=== PATIENT | female | born 1960 | race Caucasian/White ===

== ENCOUNTER 2017-07-14 16:59 | Emergency (ER) | payer BC ==
[~2017-07-14] VITALS: Ht 162.6 cm; Wt 86.2 kg
[~2017-07-14 16:59] MED LIST: CIPR500 PO; ERGO50000 PO; K-Dur20 MEQ PO; LACT10SY PO; MELO7.5 PO; NITR100CA PO; [UNRECOGNIZED DRUG - OTHER]
[2017-07-14] MEDS ORDERED: Omeprazole20 M1 PO (17:25)
[2017-07-14] MEDS ORDERED: DULO30 PO (17:25)
[2017-07-14] MEDS ORDERED: ABAT250V (17:27)
[2017-07-14] MEDS ORDERED: CELE100 PO (17:27)
[2017-07-14] MEDS ORDERED: Norco 5-325 Ta1 EACH PO (18:05)
== END 2017-07-14 18:20 | disposition home or self-care (01) ==
LOC: ER 16:59
DX: S52.531A Colles' fracture of right radius, initial encounter for closed fracture (principal); E11.9 Type 2 diabetes mellitus without complications; D64.9 Anemia, unspecified; Z79.899 Other long term (current) drug therapy; W19.XXXA Unspecified fall, initial encounter; Y92.096 Garden or yard of other non-institutional residence as the place of occurrence of the external cause
CPT/HCPCS: 25605; 36415; 73100; 99152; 99284; J7030

== ENCOUNTER 2017-07-17 08:04 | Day surgery (SDC) | payer BC ==
[~2017-07-17] VITALS: Ht 167.6 cm; Wt 86.2 kg
[~2017-07-17 08:04] MED LIST changes: +ABAT250V; +CELE100 PO; +DULO30 PO; +Norco 5-325 Ta1 EACH PO; +Omeprazole20 M1 PO
== END 2017-07-17 22:38 | disposition home or self-care (01) ==
LOC: ORSCMMR 08:04 → ORD 12:00 → ORSCMMR 12:00
PROVIDERS: Orthopaedic Surgery
PROC: 0PSJ04Z Reposition Left Radius with Internal Fixation Device, Open Approach (ICD-10-PCS; principal; 2017-07-17 09:35)
DX: S52.552A Other extraarticular fracture of lower end of left radius, initial encounter for closed fracture (principal); K21.9 Gastro-esophageal reflux disease without esophagitis; Z79.899 Other long term (current) drug therapy
CPT/HCPCS: C1713; J0171; J0690; J1100; J1885; J2250; J2405; J3010; J7120

== ENCOUNTER 2020-02-28 11:34 | Inpatient (IN) | payer BC ==
[~2020-02-28] VITALS: Ht 162.6 cm; Wt 81.7 kg
[~2020-02-28 11:34] MED LIST changes: -CELE100 PO; +CELE200 PO
[2020-02-28 12:08] LABS: BASOPHILS PERCENT AUTO 0 % (0-2); Hemoglobin 11.7 g/dL (11.5-16.0); LYMPHOCYTES ABSOLUTE AUTO 0.17 K/mm3 (0.84-5.20); LYMPHOCYTES PERCENT AUTO 9 % (21-46); MONOCYTES ABSOLUTE AUTO 0.05 K/mm3 (0.16-1.47); MONOCYTES PERCENT AUTO 3 % (4-13); Mean Corpuscular HGB 34.6 pg (26.0-34.0); Mean Corpuscular HGB Conc 33.4 g/dL (31.5-36.5); Mean Corpuscular Volume 104 fL (80-100); Mean Platelet Volume 10.3 fL (9.1-12.4); Platelet Count 222 K/mm3 (150-400); RDW Coefficient Variation 12.9 % (11.7-14.2); RDW Standard Deviation 48.8 fL (35.1-46.3); Red Blood Cell Count 3.38 M/mm3 (3.80-5.20); White Blood Cell Count 1.84 K/mm3 (4.00-11.30)
[2020-02-28 12:15] LABS: EOSINOPHILS PERCENT AUTO 0 % (0-6); IMMATURE GRAN PERCENT AUTO 0 % (0-1); NEUTROPHILS ABSOLUTE AUTO 1.62 K/mm3 (1.96-9.15); NEUTROPHILS PERCENT AUTO 88 % (41-73)
[2020-02-28 12:32] LABS: Alanine Aminotransfer (ALT/SGP 36 U/L (12-78); Albumin, Blood 1.4 g/dL (3.4-5.0); Albumin/Globulin Ratio 0.6 (0.8-1.8); Alk Phos 105 U/L (50-136); Anion Gap 17 mmol/L (6-16); Bilirubin, Total 2.3 mg/dL (0.1-1.0); Blood Urea Nitrogen 9 mg/dL (8-24); Bun/Creatinine Ratio 9.9 (12.0-20.0); CO2, Blood 17 mmol/L (21-32); Calcium, Blood 7.5 mg/dL (8.5-10.1); Chloride, Blood 100 mmol/L (98-108); Creatinine, Blood 0.91 mg/dL (0.40-1.00); Globulin, Blood 2.5 g/dL (2.2-4.0); Glomerular Filtration Rate >60 (60-); Glucose, Blood 70 mg/dL (70-99); Potassium, Blood 3.3 mmol/L (3.5-5.5); Sodium, Blood 134 mmol/L (136-145); Total Protein, Blood 3.9 g/dL (6.4-8.2); Troponin I <0.015 ng/mL (0.000-0.040)
[2020-02-28 12:57] LABS: Aspartate Aminotrans (AST/SGOT 89 U/L (12-37)
[2020-02-28 13:00] LABS: Influenza A, PCR Negative (NEGATIVE); Influenza B, PCR Negative (NEGATIVE); Resp Syncytial Virus, PCR Negative (NEGATIVE); SARS-Cov-2 (COVID-19) PCR, MMC Negative (NEGATIVE)
[2020-02-28 17:24] LABS: Base Excess Venous -13.5 mmol/L; Bicarbonate Venous 14.8 mmol/L (24.0-30.0); PCO2 Venous 27.8 mmHg (38-42); PO2 Venous 79.4 mmHg (38-42)
[2020-02-28 17:25] LABS: pH Blood Venous 7.28 (7.34-7.37)
[2020-02-28 17:31] LABS: Source, Urine Catheter
[2020-02-28 17:36] LABS: Appearance, Urine Cloudy (Clear); Blood, Urine 2+ (Neg); Color, Urine Amber (P-Yellow); Glucose Qualitative, Urine Neg (Neg); Ketones, Urine 1+ (Neg); Leukocyte Esterase, Urine 3+ (Neg); Nitrite, Urine Pos (Neg); Protein, Urine 3+ (Neg); Urobilinogen, Urine 3+ (Normal)
[2020-02-28 17:42] LABS: Bilirubin, Urine 2+ (Neg)
[2020-02-28 17:46] LABS: Bacteria Few /hpf; Squamous Epithelial Cells Mod /hpf (Few)
[2020-02-28 17:47] LABS: Mucus Light (0-Heavy)
[2020-02-28 17:49] LABS: Transitional Epithelial Cells Few /hpf (0-Rare)
[2020-02-28 17:49] LABS: International Normalized Ratio 2.16; Prothrombin Time Results 22.1 Sec (9.7-11.5)
[2020-02-28 18:31] LABS: Hematocrit 23.3 % (33.0-51.0); Hemoglobin 7.8 g/dL (11.5-16.0); Mean Corpuscular HGB 34.4 pg (26.0-34.0); Mean Corpuscular HGB Conc 33.5 g/dL (31.5-36.5); Mean Corpuscular Volume 103 fL (80-100); Mean Platelet Volume 11.8 fL (9.1-12.4); NRBC ABSOLUTE 0.03 K/mm3 (0.00-0.02); NRBC Auto 3.8 /100 WBC (0.0-0.2); Platelet Count 116 K/mm3 (150-400); RDW Coefficient Variation 13.1 % (11.7-14.2); RDW Standard Deviation 48.2 fL (35.1-46.3); Red Blood Cell Count 2.27 M/mm3 (3.80-5.20)
[2020-02-28 18:33] LABS: White Blood Cell Count 0.78 K/mm3 (4.00-11.30)
[2020-02-28 18:52] LABS: Magnesium, Blood 1.2 mg/dL (1.6-2.4)
[2020-02-28 19:12] LABS: Alanine Aminotransfer (ALT/SGP 23 U/L (12-78); Albumin, Blood 0.7 g/dL (3.4-5.0); Albumin/Globulin Ratio 0.4 (0.8-1.8); Alk Phos 53 U/L (50-136); Anion Gap 22 mmol/L (6-16); Aspartate Aminotrans (AST/SGOT 75 U/L (12-37); Blood Urea Nitrogen 8 mg/dL (8-24); Bun/Creatinine Ratio 8.2 (12.0-20.0); CO2, Blood 12 mmol/L (21-32); Calcium, Blood 5.6 mg/dL (8.5-10.1); Chloride, Blood 97 mmol/L (98-108); Creatinine, Blood 0.98 mg/dL (0.40-1.00); Globulin, Blood 1.8 g/dL (2.2-4.0); Glomerular Filtration Rate >60 (60-); Glucose, Blood 418 mg/dL (70-99); Phosphorus, Blood 3.5 mg/dL (2.5-4.9); Potassium, Blood 2.5 mmol/L (3.5-5.5); Sodium, Blood 131 mmol/L (136-145); Total Protein, Blood 2.5 g/dL (6.4-8.2)
[2020-02-28 19:16] LABS: BAND PERCENT MAN 40 % (0-8); BASOPHILS ABSOLUTE MAN 0.03 K/mm3 (0.00-0.23); BASOPHILS PERCENT MAN 4 % (0-2); EOSINOPHILS ABSOLUTE MAN 0.03 K/mm3 (0.00-0.68); EOSINOPHILS PERCENT MAN 4 % (0-6); LYMPHOCYTES ABSOLUTE MAN 0.09 K/mm3 (0.84-5.20); LYMPHOCYTES PERCENT MAN 12 % (21-46); MONOCYTES ABSOLUTE MAN 0.09 K/mm3 (0.16-1.47); MONOCYTES PERCENT MAN 12 % (4-13); NEUTROPHILS ABSOLUTE MAN 0.53 K/mm3 (1.96-9.15); SEG NEUTROPHILS PERCENT MAN 28 % (41-73); TOTAL CELLS COUNTED 25
[2020-02-28 19:18] LABS: PCO2 Arterial 23.5 mmHg (35-45); PO2 Arterial 283 mmHg (80-100)
[2020-02-28 19:19] LABS: pH Blood Arterial 7.23 (7.35-7.45)
--- NOTE | 2020-02-28 19:24 | NUR ---
1630-Patient arrived and placed in ICU 2 patient speaking and slurring speach more. Transferred to bed and called Dr Owens and received order for database management specialist consult and PICC line. BP auscultated 60 systolic. 1650 started Levophed low dose in LAC IN and PICC placed in DAI and increased to 8 mcg/min, BP 68/86. 1652-Increased slurred speech. 1658 BP 82/38 1704-BP 56/36 1706- Increased Levophed to 10 mcg/min 1711- Lactic acid called 11.5, Levophed 15 mcg/min 1712-BP 58/32 1713- PICC in DAI, cut to 50 and 6 cm out 1718-Levophed 20 mcg/min 171-BP 62/46 1720-Levophed 30 mcg/min, 16 Fr temp Pardo placed temp 100.4 1724- no auscutated BP 1730-started 1L NS bolus 1737-Ceftriaxone 1GM and Azithro 500 mg started, syatyolic 52 173-vasopressin and epi gtt at 10 mcg/min, hydracortisone 100 mg started 174- systolic 84 1748-2 amps Bicarb given, patient tried for short period on BIPAP 14/8 50% and tolerating poorly 175-systolic 110 175-Patient moved to ICU 6 and prepared to intubate 1800-20mg etomidat and 20mg ROCironium 180-Intubated by Dr Fields, 7.5 ET 25 cm, AC14, TV 450, FiO2 100%, PEEP 5.0 180-systolic 72, epi at 15 mcg/min, bilater soft wrist placed after intubation. 1811-systolic 72 1815 Doppler left wrist systolic 82 1818-Art line rt groin placed Dr Fields and epi reduced to 5 mcg/min 183- Propofol started at 20 mcg/kg/min and attempted OG and curled by randall holliday nd then pulled 184-Report given to Shaq FORD. 1755 patienty
--- NOTE | 2020-02-28 20:00 | NUR ---
ASSUMED CARE OF PT AT 191. REPORT RECEIVED AT BEDSIDE. PT S/P RAPID INTUBATION. PT ON LEVOPHED AT 30 MCG'S. EPI AT 5MCG'S VASOPRESSIN AT [address] ALONSO IN UNIT. ORDERS BEING RECEIVED. PT TO CT SOON. VENT AT CHANGES POST ABG. WILL REVIEW CHART AND PLAN OF CARE FOR THIS PT.
--- NOTE | 2020-02-28 20:45 | NUR ---
PT TO CT AND HAS RETURNED. BACK IN ROOM. AWAITING RESULTS FROM [facility]. HAVING DIFFICULTY OBTAINING ACCURATE SATURATIONS WITH MULTIPLE PLACEMENTS. PER PREVIOUS ABG, PT'S PO2 WAS GREATER THAN 200.
--- NOTE | 2020-02-28 21:50 | NUR ---
PT CONTINUED ON LEVOPHED AT 30 MCG'S, PROPOFOL AT 35 MCG'S, VASOPRESSIN AT 0.4 UNTIS, AND EPI AT 5 MCG'S. PT NOTED TO HAVE HEARTRATE CONSISTENTLY AT 120'S PER MINUTE WHEREAS BECAME 80'S TO 90'S. BLOOD PRESSURES BEGAN TO DROP PT BECOMES BRADYCARDIAC. NOTED QRS WAS WIDENING. PT IN PEA. CODE CALLED. COMPRESSIONS BEGUN. PT'S MOTTLING BECOMES MORE PRONOUNCED. WAS UNABLE TO OBTAIN ROSC. CALL WAS MADE TO DR DANIELSON PRIOR TO CODE. DURING PHONE CALL FOR UPDATE IS WHEN PT BECOMES PEA.
--- NOTE | 2020-02-29 01:00 | NUR ---
MULTIPLE CALLS MADE TO FAMILY CONCERNING PT'S PASSING. PT'S CATALINA ALFRED RETURNED PHONE CALL AND WAS NOTIFIED. PT'S BROTHER ELVIAR COMES TO THE HOSPITAL AND REMOVES PATIENTS BELONGINGS.
== END 2020-02-28 21:45 | DRG 871 ==
LOC: ER 11:34 → ICUE 15:35 → ICUW 15:35 → ICUE 16:42
PROVIDERS: Emergency Medicine; Internal Medicine Pulmonary Disease; ADMIT Internal Medicine
PROC: 0BH18EZ Insertion of Endotracheal Airway into Trachea, Via Natural or Artificial Opening Endoscopic (ICD-10-PCS; principal; 2020-02-28)
PROC: 5A1935Z Respiratory Ventilation, Less than 24 Consecutive Hours (ICD-10-PCS; 2020-02-28)
PROC: 5A09357 Assistance with Respiratory Ventilation, Less than 24 Consecutive Hours, Continuous Positive Airway Pressure (ICD-10-PCS; 2020-02-28)
PROC: 04HY32Z Insertion of Monitoring Device into Lower Artery, Percutaneous Approach (ICD-10-PCS; 2020-02-28)
PROC: 02HV33Z Insertion of Infusion Device into Superior Vena Cava, Percutaneous Approach (ICD-10-PCS; 2020-02-28)
PROC: 3E043XZ Introduction of Vasopressor into Central Vein, Percutaneous Approach (ICD-10-PCS; 2020-02-28)
DX: A41.51 Sepsis due to Escherichia coli [E. coli] (principal); R65.21 Severe sepsis with septic shock; J96.00 Acute respiratory failure, unspecified whether with hypoxia or hypercapnia; E87.2 Acidosis; N39.0 Urinary tract infection, site not specified; Z98.84 Bariatric surgery status; E11.9 Type 2 diabetes mellitus without complications; E86.0 Dehydration; Z78.1 Physical restraint status; E87.6 Hypokalemia; Z20.828 Contact with and (suspected) exposure to other viral communicable diseases
CPT/HCPCS: 0241U; 31500; 31720; 36415; 36569; 36620; 51703; 71045; 74176; 76705; 80053; 81001; 82140; 82803; 82947; 83605; 83735; 83880; 84100; 84484; 85025; 85610; 87040; 87077; 87086; 87186; 92950; 93005; 93010; 94002; 94003; 94660; 96361; 96365; 99285-25; C1751; J0171; J0456; J0610; J0696; J1160; J1720; J2704; J3480; J7030; J7050; J7060; J7120